=== PATIENT | male | born 1980 | race Caucasian/White ===

== ENCOUNTER 2021-07-25 12:59 | Emergency (ER) | payer SELFPAY ==
[2021-07-25 13:02] VITALS: BP 125/76; PULSE 95; RESP 14; TEMP 36.6; O2SAT 98; BMI 24.5
--- NOTE | 2021-07-25 13:20 | ED.PSYCH ---
HPI - Psych General Chief Complaint: Psychiatric Symptoms Stated Complaint: schizophrenia trigger Time Seen by Provider: 07/25/21 13:06 Source: patient Mode of arrival: Ambulatory History of Present Illness HPI Narrative: Patient is a 40-year-old male. [place]. Has a history of schizophrenia and also bipolar disorder. Does see a psychiatrist back in his home state. Is on medications. Also has a history of drug abuse to include methamphetamine and also opioids. Is here in the emergency department for evaluation of feeling sad and depressed. His symptoms seem to have started yesterday. He did not specifically tell me what triggered his symptoms but his girlfriend states that he has been focused on the fact that he has been unable to ejaculate. This occurred yesterday morning and again last evening. This seems to have caused him to become very depressed. He denies thoughts of hurting himself. Denies thoughts of hurting others. He states that he is taking his medications but potentially not as often as he should or as directed. He has been hospitalized in the past for his mental health issues. Does not feel like he needs hospitalized now. Is here because his girlfriend states that last evening he seem to be so focused on the issues that brought him in today that he has been unable to focus on anything else. Related Data Allergies Allergy/AdvReac Type Severity Reaction Status Date / Time No Known Drug Allergies Allergy Verified 07/25/21 13:11 Review of Systems Cardiovascular Cardiovascular: Reports as per HPI and Reports system reviewed and no additional complaints, except as documented Respiratory Respiratory: Reports as per HPI and Reports system reviewed and no additional complaints, except as documented Neurologic Neurologic: Reports system reviewed and no additional complaints, except as documented and Reports as per HPI Psychiatric Psychiatric: Reports as per HPI Hematologic/Lymphatic On Anticoagulants: No Patient History Medical History Bipolar disorder Methamphetamine abuse Opioid abuse Schizophrenia Social History Smoking Status: Current every day smoker Smoking Status: Current every day smoker alcohol intake frequency: a few times a week Substance Use Type: marijuana and methamphetamine Exam Initial Vital Signs Initial Vital Signs: Vital Signs Temperature 97.8 F 07/25/21 13:02 Pulse Rate 95 H 07/25/21 13:02 Respiratory Rate 14 07/25/21 13:02 Blood Pressure 125/76 07/25/21 13:02 Pulse Oximetry 98 07/25/21 13:02 Resp Effort & Inspection: normal respiratory effort Auscultation: clear to auscultation bilaterally Cardio Rate: regular rate Rhythm: regular rhythm Skin General: no rashes or lesions noted Neuro General: patient alert, patient awake and patient oriented x3 Extrem General: normal to inspection and capillary refill normal Psych Appearance: grossly normal and well kempt Speech and Movement: speech clear and slowed movement Mood: dysthymic mood Affect: sad Attitude: cooperative and avoids eye contact Thought Process: normal Thought Content: no homicidality and suicidality Course Orders Ordered: ED Orders 07/25/21 13:21 Consult to PUSH BENCH OPERATOR HELPER - Lead Mechanic Stat Discontinued Medications Lorazepam (Lorazepam 0.5 Mg Tablet) 1 mg PO NOW ONE Stop: 07/25/21 14:00 Vital Signs Vital signs: Vital Signs - 8 hr 07/25/21 13:02 Temperature 97.8 F Pulse Rate 95 H Respiratory Rate 14 Blood Pressure 125/76 Pulse Oximetry 98 MDM - Psych MDM Narrative Medical decision making narrative: Nontoxic appearing. Not suicidal. Not homicidal. He is perseverating over the fact that he could not ejaculate yesterday which has caused all of his symptoms in the past 24 hours. Patient was seen by social work. No indication for emergent admission to the hospital. Patient does not want to be admitted. Plan will be is to discharge home to follow-up with his psychiatrist when he returns back to [place]. Discharge Plan Departure Patient Disposition: Home Clinical Impression: Depression Instructions: Depression Activity Restrictions/Additional Instructions: Recommend you continue to take all of your medications as directed. Contact your psychiatrist to see if you are able to see him when you return back home. Return to the emergency department for any new or worsening symptoms.
[2021-07-25] MEDS: LORazepam 0.5 MG TABLET 1 MG PO (14:05)
--- NOTE | 2021-07-25 14:47 | CM.SWNOTE ---
PATIENT RELATIONS MANAGER - Interactive Media Designer Assessment PATIENT RELATIONS MANAGER/Interactive Media Designer Assessment Time Spent with Patient Start date 07/25/21 Visit Start Time 13:25 End date 07/25/21 Visit End Time 14:15 Total time Care Management spent on 50 patient visit-in minutes Mental Health Screening Include Onset, Duration, Intensity Presenting Problem Patient presents to ED with girlfriend's concern for Schizophrenia trigger. Precipitating Event(s) Patient is very sad and anxious about his inability to ejaculate when performing intercourse with his girlfriend. Patient's girlfriend endorses that she witness patient go from tearful, to twitching his eyes and say hurtful things last evening and this morning Patient Strengths Patient has psychiatrist and he would like to move forward with girlfriend Current Behavioral Health Provider(s) Patient endorses he sees [facility], Provider, Ph. # Otto, RN, MSN, PMHNP-BC in [place] at [facility]. Psych. Hx Mental Health and Chemical Patient endorses dx of Bipolar Dependency Disorder and Schizophrenia. Patient endorses crystal meth Methamphetamine use (3 days ago) and THC use. Patient endorses and shows rx for Amitriptyline, and endorses that he gets the Invega shot every 3 months. Patient later endorses to RN other anxiety medications. Family Hx of Behavioral Abuse None reported Psychiatric Hospitalizations (date(s)/ Patient endorses inpatient location) hospitalization in [place] a few years ago Psychosocial information & Support Patient is 40 y/o male who Systems resides in [place], [place] and is visiting [place] with his girlfriend. School/Work Employed Legal Concerns Legal Matters - Outstanding Issues None reported Mental Status Orientation (Person/Place/Time) A/Ox4 Stated Mood helpless Affect (Congruent with Mood?) dysphoric, labile, then flat. Congruent with mood Thought Content - Specify/Describe Patient denies visual and Obsessions, Delusions, Hallucinations auditory hallucinations. Patient endorse paranoia about relationship. Thought Processes (Ptgeetj-Qfvhvxpm-Qohr tangential/perseveration Fdxvcffl-Tryfqnxz-Fvqqmwnjlz- Sluclftylydsqm-Drvobxs-Kepfjndckfks- Thought Blocking) Speech (Zvaocf-Ekny-Rikxkfp-Rapid-Soft- soft Loud-Pressured) Motor (Saqpzo-Scuivseyh-Lneg-Other) normal/slow, not formally assessed Insight (Umde-Uwyw-Jued/Limited) fair/limited Judgement (Xjci-Xgnr-Rqnw/Limited) fair/limited Impulse Control (Adequate-Impaired) adequate Memory (Zenrgmbhr-Apynuw-Wgghda, intact, not formally assessed Impaired-Intact) Concentration (Intact-Impaired) intact Attention (Intact-Impaired) intact Behavior (Appropriate-Inappropriate) appropriate Additional Comment Patient is calm and communicative with PATIENT RELATIONS MANAGER during assessment. Risk Assessment Suicidal Ideation (Plan) No Homicidal Ideation (Plan) No Comment Patient denies SI and HI. Intervention Intervention PATIENT RELATIONS MANAGER enters room to meet with patient. Patient endorses that he would like to meet with PATIENT RELATIONS MANAGER privately, patient's girlfriend leaves room. Patient is tearful when describing his concern for his inability to perform intercourse with his girlfriend. Patient continues to cycle through his concern for the issue and the future of his relationship. PATIENT RELATIONS MANAGER encourages patient to f/u with PCP, seek urologist specialist and f/u with psychiatrist appt coming up. PATIENT RELATIONS MANAGER speaks with patient's girlfriend privately who endorses her concern of patient switching from tearful to elevated. Patient endorses her safety but reports concern. PATIENT RELATIONS MANAGER meets with both patient and his girlfriend as he is seeking her return to the room. PATIENT RELATIONS MANAGER discusses continuing to communicate and discuss steps to move forward, and recommends patient to take medications as prescribed. PATIENT RELATIONS MANAGER provides patient and girlfriend with crisis contact information. The couple decides to stay in town one more day before venturing back to [place]. It is the opinion of this PATIENT RELATIONS MANAGER that patient is safe to d/c to the community. PATIENT RELATIONS MANAGER reviews the above with ED provider Dr. Dallas who indicates agreement and understanding. Plan RA Plan Patient to d/c to community with girlfriend and to f/u with psychiatrist and PCP for specialist referral. DEVANTE Wagner
== END 2021-07-25 14:17 | disposition home or self-care (01) ==
PROVIDERS: Emergency Provider Emergency Medicine
DX: F32.9 Major depressive disorder, single episode, unspecified (principal)
CPT/HCPCS: 99283